=== PATIENT | male | born 1960 | race Hispanic/Latino ===

== ENCOUNTER 2021-04-05 08:08 | Day surgery (SDC) | payer BC ==
[~2021-04-05 08:08] MED LIST: SODIUM CHLORIDE 0.9% 1000 ML 1,000 ML IV SCH
[2021-04-05] MEDS ORDERED: MIDAZOLAM 2 MG/2 ML INJ ONE (09:13)
[2021-04-05] MEDS ORDERED: MIDAZOLAM 2 MG/2 ML INJ IV ONE (09:15)
--- NOTE | 2021-04-05 09:57 | Anesthesia Day of Surgery ---
Anesthesia Day of Surgery - Day of Surgery Patient Examined: Yes Patient H&P Reviewed: Yes Patient is NPO: Yes
--- NOTE | 2021-04-05 09:57 | Anesthesia Consultation ---
Anesthesia Consult and Med Hx Date of service: 04/05/21 - Airway Anesthetic Teeth Evaluation: Good, Partials (upper) ROM Head & Neck: Adequate Mental/Hyoid Distance: Adequate Mallampati Class: Class III Intubation Access Assessment: Possibly Difficult - Pre-Operative Health Status ASA Pre-Surgery Classification: ASA3 Proposed Anesthetic Plan: MAC - Pulmonary Hx Smoking: Yes (quit 40yrs ago) Hx Respiratory Symptoms: No Hx Sleep Apnea: Yes (+ CPAP) - Cardiovascular System Hx Hypertension: Yes (labile, per patient) Hx Heart Attack/AMI: No Hx Percutaneous Transluminal Coronary Angioplasty (PTCA): No - Central Nervous System CVA: No Hx Back Pain: Yes - Endocrine Hx Renal Disease: No Hx Liver Disease: No Hx Insulin Dependent Diabetes: No Hx Non-Insulin Dependent Diabetes: No Hx Thyroid Disease: No - Other Systems Hx Alcohol Use: Yes (sober 5yrs) Hx Obesity: Yes (BMI 39) - Additional Comments Anesthesia Medical History Comments: Requests anti anxiety medication prior to procerdure.
[2021-04-05] MEDS ORDERED: propofoL 200 MG/20 ML VIAL IV ONE ×3 (10:16→10:52)
--- NOTE | 2021-04-05 11:14 | Procedure Note ---
Date of procedure: 04/05/21 Pre-op diagnosis: Dyspepsia/ colon Polyp Screening and diarrhea Post-op diagnosis: other (Mild, Gabby Esophagitis/Mild to Moderate Erosive Esophagitis/Gastritis/Solitary,Small Recto-Sigmoid Polyp/Moderate, Prosimal colon Diverticuli/R/O Microscopic Colitis/R/O ILeitis/ Mild to Moderate Internal Hemorrhoids) Procedure: EGD with Biopsy/ Colonoscopy with Cold Biopsy Anesthesia: YULIYA Surgeon: CHERY HUFFMAN Estimated blood loss: minimal Pathology: list Specimen disposition: to lab Condition: stable Disposition: same day (Treat with PPI,Fluconazole; encourage fiber intake and OTC Probiotics and avoid aspirin and NSAID for 5 days, otherwise resume home medication and F/U in 1 to 2 weeks ([phone]).)
--- NOTE | 2021-04-05 11:21 | Operative Report ---
DATE OF SURGERY: 04/05/2021 PROCEDURE: Colonoscopy. INDICATIONS: EGD was done prior to the colonoscopy, which showed some mild Gabby esophagitis in the mid esophagus as well as mild to moderate erosive esophagitis and gastritis, but no peptic ulcer disease. DESCRIPTION OF PROCEDURE: Colonoscopy was done as part of colon polyp screening and also to assess for the patient's symptoms of diarrhea. Initial rectal examination was unremarkable. The instrument was passed through the rectum onto the cecum, which was identified by the ileocecal valve and the appendiceal orifice. Visualization was fair to good. The mucosa was washed with copious amounts of water. The terminal ileum was briefly intubated, showed normal mucosa. Biopsy was done to rule out for possible ileitis. There was moderate diverticular disease, most pronounced in the proximal colon. No colon polyps were noted in the proximal of the transverse or most of the left colon. Random biopsies were done to rule out for microscopic colitis. There was a solitary small rectosigmoid polyp noted that was removed by cold biopsy and the rectum showed mild to moderate internal hemorrhoid on the retroverted view. There was minimal bleeding associated with the biopsies. No complications associated with the procedure. ASSESSMENT: Colon polyp screening, solitary small rectosigmoid polyp noted, diarrhea, rule out microscopic colitis, rule out ileitis, moderate diverticular disease, most pronounced in the proximal colon, mild to moderate internal hemorrhoid. PLAN: To encourage the patient to take fiber supplements, have the patient also take probiotics as an [id number] medication, take symptomatic treatment for [id number] treatment for diarrhea, await for the biopsy results, have the patient avoid aspirin and aspirin-related products for the next 5 days, otherwise resume home medication. The patient will also be placed on fluconazole for the mild Gabby esophagitis that he had as well as PPI for the mild to moderate erosive esophagitis and gastritis. The patient will be asked to follow up in the office in 1-2 weeks' time. Procedure was done in the GI lab with assistance of the GI lab team, which included the GI nurse, planetarium sky show technician, and with assistance of anesthesia. TID: [id number] RECEIPT: [id number] CONNIE/LIDIA
--- NOTE | 2021-04-05 11:32 | Operative Report ---
DATE OF SURGERY: 04/05/2021 PROCEDURE PERFORMED: EGD with biopsy. INDICATIONS: This is a 60-year-old slightly obese white male, , who has been complaining of dyspeptic symptoms. EGD was done to make sure there was not any peptic ulcer disease present. DESCRIPTION OF PROCEDURE: Procedure was done after getting informed consent with MAC anesthesia. The instrument was passed through the hypopharynx into the esophagus, which showed some mild Gabby esophagitis. Biopsy was done to assess for the Gabby esophagitis and the distal esophagus showed mild to moderate erosive esophagitis. Photodocumentation and biopsy was also done to assess for the severity of the erosive esophagitis. The stomach did not show any ulcers in the straight or the retroverted view. There was some antral gastritis present. Pylorus was patent. Duodenum in the first and second portion appeared normal. Biopsy was done from the gastric antrum, gastric body and angular incisura to rule out for H. pylori and atrophic gastritis. There was minimal bleeding associated with the procedure. No complications associated with the procedure. ASSESSMENT: Dyspepsia, no peptic ulcer disease noted. Mild Gabby esophagitis in the mid esophagus, mild to moderate distal erosive esophagitis and gastritis. PLAN: To treat the patient with PPI as well as fluconazole. Have the patient avoid aspirin and aspirin-related products for the next few days and to follow up in the office in 1-2 weeks' time. Colonoscopy was also going to be done as part of colon polyp screening and to assess for any associated colitis since the patient also gives a history of diarrhea. Procedure was done in the GI lab with assistance of the GI lab team, which included the GI nurse, electrical design technologist and with assistance of anesthesia. TID: [id number] RECEIPT: [id number] CONNIE/[place]/CASIMIRO
--- NOTE | 2021-04-05 12:38 | Post Anesthesia Evaluation ---
- Post Anesthesia Evaluation Patient Participated: Yes Airway Patent: Yes Stable Respiratory Function: Yes Nausea/Vomiting: No Temp > 96.8F: Yes Pain Manageable: Yes Adequeate Hydration: Yes Anesthesia Complications: No
[2021-04-05 18:30] VITALS: BP 103/69
== END 2021-04-05 08:09 | disposition home or self-care (01) ==
LOC: GIO 08:08
DX: R19.7 Diarrhea, unspecified (principal); R10.13 Epigastric pain; E66.9 Obesity, unspecified; K21.00 Gastro-esophageal reflux disease with esophagitis, without bleeding; K64.0 First degree hemorrhoids; K57.30 Diverticulosis of large intestine without perforation or abscess without bleeding; K29.50 Unspecified chronic gastritis without bleeding; K63.89 Other specified diseases of intestine; K31.89 Other diseases of stomach and duodenum; I10 Essential (primary) hypertension; G47.30 Sleep apnea, unspecified; Z79.899 Other long term (current) drug therapy; Z98.890 Other specified postprocedural states
CPT/HCPCS: 43239; 45380; 88305; 88342; J2250; J2704; J7030; J7120; Q0162